=== PATIENT | male | born 1995 | race Caucasian/White ===

== ENCOUNTER → 2019-05-14 | Outpatient (CLI) | payer OTHER ==
--- NOTE | 2019-05-14 14:21 | RAD ---
Testicular and scrotal duplex examination Clinical indications: Left scrotal swelling and left groin pain FINDINGS: Duplex sonography of the scrotum and testicles was performed including grayscale evaluation and color flow and waveform spectral analysis. The longitudinal AP and transverse dimensions of the right testicle are 4.6 cm and 1.9 cm and 2.7 cm respectively. The longitudinal and AP and transverse dimensions of the left testicle are 4.5 cm and 1.7 cm and 2.5 cm respectively. Both testicles are homogeneous without mass and exhibit symmetric color Doppler flow. Small epididymal cysts are seen bilaterally. No enlargement or hyperemia of either epididymis is seen otherwise. No hydrocele is seen on either side. Sonography of the left groin demonstrates 3 lymph nodes which demonstrate normal lymph node sonographic architecture. Largest measures 2.1 cm in size. No hernia is seen sonographically. IMPRESSION: Left great lymph nodes which demonstrate normal sonographic architecture. Otherwise normal sonographic evaluation of the testicles. Electronically signed by: Malcolm Crisostomo MD (05/14/2019 2:18 PM) [facility] [place]
== END | disposition home or self-care (01) ==
LOC: US 07:54
PROVIDERS: ATTEND Nurse Practitioner
DX: N50.89 Other specified disorders of the male genital organs (principal); R10.32 Left lower quadrant pain
CPT/HCPCS: 76870

== ENCOUNTER 2019-05-27 02:46 | Emergency (ER) | payer OTHER ==
[~2019-05-27] VITALS: Ht 190.5 cm; Wt 111.3 kg
[2019-05-27 02:46] VITALS: BP 137/85
--- NOTE | 2019-05-27 03:17 | PHYS DOC ---
Adult General Chief Complaint Chief Complaint: SORE THROAT HPI HPI Patient is a 23-year-old male presenting with sore throat x2 or 3 days no fever mild cough no other symptoms just wanted to get checked out. He works over at [employer]. Review of Systems Review of Systems Constitutional: Denies fever or chills [] Eyes: Cardiovascular: No additional information not addressed in HPI [] GI: Denies abdominal pain, nausea, vomiting, bloody stools or diarrhea [] : Denies dysuria or hematuria [] Musculoskeletal: Denies back pain or joint pain [] Integument: Denies rash or skin lesions [] Neurologic: Denies headache, focal weakness or sensory changes [] Endocrine: Denies polyuria or polydipsia [] All other systems were reviewed and found to be within normal limits, except as documented in this note. Allergies Allergies Allergies Coded Allergies Type Severity Reaction Last Updated Verified No Known Drug Allergies 05/27/19 No Physical Exam Physical Exam Constitutional: Well developed, well nourished, no acute distress, non-toxic appearance. [] HENT: Normocephalic, atraumatic, bilateral external ears normal, oropharynx moist, no oral exudates, nose normal. [] Eyes: PERRLA, EOMI, conjunctiva normal, no discharge. [] There is erythema of the oropharynx with no exudate no asymmetric swelling 0.5 cm tender anterior lymphadenopathy present Neck: Normal range of motion, no tenderness, supple, no stridor. [] Cardiovascular:Heart rate regular rhythm, no murmur [] Lungs & Thorax: Bilateral breath sounds clear to auscultation [] Abdomen: soft, no tenderness, no masses, no pulsatile masses. [] Skin: Warm, dry, no erythema, no rash. [] Extremities: No tenderness, no cyanosis, no clubbing, ROM intact, no edema. [] Neurologic: Alert and oriented X 3, normal motor function, normal sensory function, no focal deficits noted. [] Psychologic: Affect normal, judgement normal, mood normal. [] Current Patient Data Vital Signs Afebrile 97.9 see nurse's note for complete vitals EKG EKG [] Radiology/Procedures Radiology/Procedures [] Course & Med Decision Making Course & Med Decision Making Pertinent Labs and Imaging studies reviewed. (See chart for details) [] Rapid strep negative patient was reassured discharged in stable condition Dragon Disclaimer Dragwei Disclaimer This electronic medical record was generated, in whole or in part, using a voice recognition dictation system. Departure Departure: Impression: Primary Impression: Sore throat Disposition: HOME, SELF-CARE Condition: STABLE Patient Instructions: Sore Throat, [id number] LONDON BRYANT MD May 27, 2019 03:17
== END 2019-05-27 03:20 | disposition home or self-care (01) ==
LOC: ER 02:46
DX: J02.9 Acute pharyngitis, unspecified (principal)
CPT/HCPCS: 87070; 87880; 99283